=== PATIENT | male | born 1990 | race Caucasian/White ===

== ENCOUNTER 2016-04-06 | Emergency (ER) | payer OTHER | END 2016-04-06 20:15 | disposition home or self-care (01) ==

== ENCOUNTER 2017-02-06 17:51 | Emergency (ER) | payer OTHER ==
[2017-02-06 18:08] VITALS: BP 118/68
[2017-02-06 18:18] LABS: BILIRUBIN,URINE NEGATIVE (NEGATIVE); UA CHARGE (STRIP ONLY) YES; UR CULTURE IF IND NOT INDICATED
--- NOTE | 2017-02-06 21:12 | ED Physician Documentation ---
PD HPI ABD PAIN - Stated complaint Stated Complaint: MALE - Chief complaint Chief Complaint: General - History obtained from History obtained from: Patient - History of Present Illness Timing - onset: Today Timing - details: Gradual onset Quality: Cramping, Aching Location: Suprapubic Worsened by: Position, Palpation Associated symptoms: Nausea, Diarrhea. No: Fever Similar symptoms before: Work up / diagnostics, Treatment Recently seen: Not recently seen - Additional information Additional information: Patient is a 26 year old male with a history of kidney infection in the past who is presenting to the emergency department for suprapubic pain. patient states that today he had some epigastric pain and nausea, he took a nap and when he got up he felt better. He went to the gym, afterwards he had some diarrhea. Patient states that he also had some abdominal cramping. patient states that he had a bladder infection in the past and it felt like this so he wanted to get it checked out. Review of Systems Constitutional: denies: Fever, Chills Eyes: reports: Reviewed and negative Ears: reports: Reviewed and negative Nose: reports: Reviewed and negative Throat: reports: Reviewed and negative Cardiac: denies: Chest pain / pressure, Palpitations Respiratory: denies: Dyspnea, Cough, Wheezing GI: reports: Abdominal Pain, Nausea, Diarrhea. denies: Vomiting : denies: Dysuria, Frequency Skin: denies: Rash, Lesions Neurologic: denies: Generalized weakness, Focal weakness Immunocompromised: denies: Immunocompromised PD PAST MEDICAL HISTORY - Past Medical History Neuro: Headache/migraine - Past Surgical History Past Surgical History: Yes - Present Medications Home Medications: Ambulatory Orders Medication Instructions Recorded Confirmed Ondansetron Odt [Zofran] 4 mg TL Q6H PRN #14 tablet 02/06/17 - Allergies Allergies/Adverse Reactions: Allergies Allergy/AdvReac Type Severity Reaction Status Date / Time No Known Drug Allergies Allergy Verified 02/06/17 18:08 - Social History Does the pt smoke?: No Smoking Status: Former smoker Does the pt drink ETOH?: Yes Does the pt have substance abuse?: No - Immunizations Immunizations are current?: No - POLST Patient has POLST: No PD ED PE NORMAL - Vitals Vital signs reviewed: Yes - General General: Alert and oriented X 3, No acute distress, Well developed/nourished - HEENT HEENT: Atraumatic, PERRL - Neck Neck: Supple, no meningeal sign - Cardiac Cardiac: RRR, No murmur - Respiratory Respiratory: No respiratory distress, Clear bilaterally - Abdomen Abdomen: Soft, Non distended - Derm Derm: Normal color, Warm and dry, No rash - Extremities Extremities: No deformity, Normal ROM s pain - Neuro Neuro: Alert and oriented X 3, No motor deficit, No sensory deficit, Normal speech PD ED PE EXPANDED - Abdomen Abdomen: Tender to palpation, Suprapubic. No: Distended, Rebound, Guarding Results - Vitals Vitals: Vital Signs - 24 hr 02/06/17 18:04 Temperature 36.8 C Heart Rate 88 Respiratory 16 Rate Blood Pressure 118/68 O2 Saturation 98 Oxygen O2 Source Room air - Labs Labs: Laboratory Tests 02/06/17 18:12 Urine Color YELLOW Urine Clarity CLEAR Urine pH 6.0 Ur Specific [place] <=1.005 Urine Protein NEGATIVE Urine Glucose (UA) NEGATIVE Urine Ketones NEGATIVE Urine Occult Blood TRACE-LYSE Urine Nitrite NEGATIVE Urine Bilirubin NEGATIVE Urine Urobilinogen 0.2 (NORMAL) Ur Leukocyte Esterase NEGATIVE Ur Microscopic Review NOT INDICATED Urine Culture Comments NOT INDICATED PD MEDICAL DECISION MAKING - ED course Complexity details: reviewed old records, reviewed results, re-evaluated patient , considered differential, d/w patient ED course: Patient was seen and examined at bedside. patient was well appearing and in no acute distress. patient's urine was collected and showed no signs of infection. Patient stated that he had not been sexually active in 5 months. Patient's symptoms were more likely due to gastroenteritis and less likely . patient was made aware of the findings and stable for discharge with outpatient follow up. Departure - Departure Disposition: 01 Home, Self Care Clinical Impression: Diarrhea Condition: Good Instructions: ED Diarrhea Viral Follow-Up: primary,care provider [Other] - As Needed Prescriptions: Ondansetron Odt [Zofran] 4 mg TL Q6H PRN #14 tablet PRN Reason: Nausea / Vomiting Comments: Your diagnostics today were within normal limits. Your other lab results will be back in the next 3 days and you will be called if it is positive. You should follow up with your doctor if your symptoms persist. Make sure you stay well hydrated. You may return to the emergency department at any time for new, worsening or uncontrollable symptoms. Discharge Date/Time: 02/06/17 21:18
[2017-02-06] MEDS: ONDANSETRON ODT 4 MG TABLET TL STA (21:17)
[2017-02-06] MEDS ORDERED: ONDANSETRON ODT 4 MG TABLET ONE (21:20)
== END 2017-02-06 21:18 | disposition home or self-care (01) ==
LOC: ED 17:51
DX: R19.7 Diarrhea, unspecified (principal); Z87.891 Personal history of nicotine dependence
CPT/HCPCS: 81001; 81003; 87086; 87491; 87591; 99283

== ENCOUNTER 2022-03-22 20:49 | Emergency (ER) | payer OTHER ==
[2022-03-22 21:08] VITALS: BP 139/81
--- NOTE | 2022-03-22 23:00 | ED Physician Documentation ---
History of Present Illness - Stated complaint Stated Complaint: COUGH,CONGESTION,NERVE PX - Chief complaint Chief Complaint: General - History obtained from History obtained from: Patient - Additonal information Additional information: Pt comes to the ED with CC of sore throat. He has also had congestion and cough for the same time (about 3 days). He denies fevers. He states he just had a sore throat a couple of weeks ago, and finished abx for possible strep about a week ago. He states he felt a little better for a couple of days, but sore throat came back. He had a tonsillectomy years ago. Review of Systems Constitutional: reports: Reviewed and negative Eyes: reports: Reviewed and negative Ears: reports: Reviewed and negative Nose: reports: Rhinorrhea / runny nose, Congestion Throat: reports: Sore throat Cardiac: reports: Reviewed and negative Respiratory: reports: Cough GI: reports: Reviewed and negative : reports: Reviewed and negative Skin: reports: Reviewed and negative Musculoskeletal: reports: Reviewed and negative Neurologic: reports: Reviewed and negative Psychiatric: reports: Reviewed and negative Endocrine: reports: Reviewed and negative Immunocompromised: reports: Reviewed and negative PD PAST MEDICAL HISTORY - Past Surgical History Past Surgical History: Yes HEENT: Tonsil/Adenoidectomy - Present Medications Home Medications: Ambulatory Orders Medication Instructions Recorded Confirmed Ondansetron Odt [Zofran] 4 mg TL Q6H PRN #14 tablet 02/06/17 - Allergies Allergies/Adverse Reactions: Allergies Allergy/AdvReac Type Severity Reaction Status Date / Time No Known Drug Allergies Allergy Verified 03/22/22 21:04 - Social History Does the pt smoke?: No Smoking Status: Former smoker Does the pt drink ETOH?: Yes Does the pt have substance abuse?: No - Immunizations Immunizations are current?: No - POLST Patient has POLST: No PD ED PE NORMAL - Vitals Vital signs reviewed: Yes - General General: Alert and oriented X 3, No acute distress, Well developed/nourished - HEENT HEENT: Atraumatic, PERRL, EOMI, Moist mucous membranes, Pharynx benign, Dentition benign - Neck Neck: Supple, no meningeal sign - Cardiac Cardiac: RRR, No murmur, Strong equal pulses - Respiratory Respiratory: No respiratory distress, Clear bilaterally - Abdomen Abdomen: Soft, Non tender, Non distended - Derm Derm: Normal color, Warm and dry, No rash - Extremities Extremities: No deformity, No edema - Neuro Neuro: Alert and oriented X 3 - Psych Psych: Normal mood, Normal affect Results - Vitals Vitals: Oxygen O2 Source Room air - Labs Labs: Laboratory Tests 03/22/22 22:27 Nasal Adenovirus (PCR) NOT DETECTED Nasal B. parapertussis DNA (PCR) NOT DETECTED Nasal Coronavir 229E PCR NOT DETECTED Nasal Coronavir HKU1 PCR NOT DETECTED Nasal Coronavir NL63 PCR NOT DETECTED Nasal Coronavir OC43 PCR NOT DETECTED Nasal Enterovir/Rhinovir PCR DETECTED A Nasal Influenza B PCR NOT DETECTED Nasal Influenza A PCR NOT DETECTED Nasal Parainfluen 1 PCR NOT DETECTED Nasal Parainfluen 2 PCR NOT DETECTED Nasal Parainfluen 3 PCR NOT DETECTED Nasal Parainfluen 4 PCR NOT DETECTED Nasal RSV (PCR) NOT DETECTED Nasal B.pertussis DNA PCR NOT DETECTED Nasal C.pneumoniae (PCR) NOT DETECTED Silvio Human Metapneumo PCR NOT DETECTED Nasal M.pneumoniae (PCR) NOT DETECTED Nasal SARS-CoV-2 (PCR) NOT DETECTED PD Medical Decision Making - ED course Complexity details: reviewed results, re-evaluated patient, considered differential, d/w patient ED course: I d/w pt that I do not find convincing evidence of strep, and with the additional sx, this is much more likely to be a viral illness. The pt also has just finished a course of PCN, and furthermore, has had a tonsillectomy, making the likelihood of strep even less likely. A viral panel has been sent, and is positive for rhinovirus. We have discussed symptomatic management at home and the usual indications for return. Departure - Departure Disposition: 01 Home, Self Care Clinical Impression: Viral upper respiratory illness, Viral pharyngitis Condition: Stable Instructions: ED Pharyngitis Viral, ED Viral Syndrome Comments: Your symptoms are most consistent with a viral upper respiratory infection causing inflammation of your throat. Your throat does not have the typical appearance of strep and furthermore, you just finished an appropriate course of antibiotics for strep. With the other upper respiratory symptoms, this points more to a viral syndrome. As such, a viral panel has been sent and is pending at this time. While this does not test by any means for every virus that goes around and causes such symptoms, it can be helpful in pinpointing a cause. You will be notified of any significant positive results; however, you may also monitor for your results by going to her hospital website at [email or web address], clicking on the "[facility]" tab, and signing up for the patient portal. As far as managing your symptoms, you may take ibuprofen 600 mg every 6 hours and Tylenol 650 mg every 4 hours, as needed for discomfort. These medications are unrelated and may be taken at the same time without harm. Symptoms of an illness such as you have are generally expected to last anywhere from several days to a week or 2, but ultimately, will resolve on their own. Discharge Date/Time: 03/22/22 23:17
[2022-03-23 00:18] LABS: B. PARAPERTUSSIS- RESP PCR PAN NOT DETECTED; B. PERTUSSIS- RESP PCR PANEL NOT DETECTED; C. PNEUMONIAE- RESP PCR PANEL NOT DETECTED; CORONAVIRUS 229E-RESP PCR NOT DETECTED; CORONAVIRUS HKU1-RESP PCR NOT DETECTED; CORONAVIRUS NL63-RESP PCR NOT DETECTED; CORONAVIRUS OC43-RESP PCR NOT DETECTED; HUMAN METAPNEUMOVIRUS NOT DETECTED; INFLUENZA A- RESP PCR PANEL NOT DETECTED; INFLUENZA B - RESP PCR PANEL NOT DETECTED; M. PNEUMONIAE- RESP PCR PANEL NOT DETECTED; PARAINFLUENZA VIRUS 1 NOT DETECTED; PARAINFLUENZA VIRUS 2 NOT DETECTED; PARAINFLUENZA VIRUS 3 NOT DETECTED; PARAINFLUENZA VIRUS 4 NOT DETECTED; RHINOVIRUS/ENTEROVIRUS DETECTED; RSV- RESP PCR PANEL NOT DETECTED; SARS-CoV-2 -RESP PCR PANEL NOT DETECTED
== END 2022-03-22 23:17 | disposition home or self-care (01) ==
LOC: ED 20:49
DX: J06.9 Acute upper respiratory infection, unspecified (principal); J02.8 Acute pharyngitis due to other specified organisms; B97.89 Other viral agents as the cause of diseases classified elsewhere; Z87.891 Personal history of nicotine dependence; Z20.822 Contact with and (suspected) exposure to COVID-19
CPT/HCPCS: 87633; 99282; 99283